=== PATIENT | male | born 1960 | race Caucasian/White ===

== ENCOUNTER 2024-11-15 10:24 | Outpatient (REF) | payer MEDICARE, SELFPAY | END 2024-11-15 10:25 | disposition home or self-care (01) | LOC: HO.BBR 10:24 | PROVIDERS: PCP Physician Assistant; Visit Provider Internal Medicine Hematology | DX: D75.1 Secondary polycythemia (principal) | CPT/HCPCS: 85014; 85018; 99195 ==

== ENCOUNTER 2024-11-30 09:43 | Outpatient (REF) | payer MEDICARE, SELFPAY | END 2024-11-30 09:44 | disposition home or self-care (01) | LOC: HO.BBR 09:43 | PROVIDERS: PCP Physician Assistant; Visit Provider Internal Medicine Hematology | DX: D75.1 Secondary polycythemia (principal) | CPT/HCPCS: 85014; 85018; 99195 ==

== ENCOUNTER 2024-12-17 08:05 | Outpatient (REF) | payer MEDICARE, SELFPAY ==
--- OUTSIDE RECORDS SUMMARY | 2024-12-17 08:16 | XMS_ITS | Continuity of Care Document ---
Author Organization [facility] Address [address] [place] [id number]- Care Team Providers Care Investigator Narcotics Name Role Phone Sergio PERKINS, Trino Diane Primary Care Physici an Encounter [facility] [facility] [id number] Date(s): 11/14/24 - 12/14/24 [facility] [address] [place] [address] Encounter Type: Triage Allergies, Adverse Reactions, Alerts No Known Allergies Immunizations Given and Recorded Vaccine Date Status Refusal Reason SARS-CoV-2 (COVID-19) Ad26 vaccine 01/19/21 Record ed Medications Albuterol (Eqv-ProAir HFA) 90 mcg/inh inhalation aerosol 2 puffs, Inhalation, Every 6 hours, PRN NEEDED, # 8.5 Gm, 0 Refills, Maintenance, 04/30/22 2:58:00PM EDT, [facility] # [facility], 17, INHALE 2 PUFFS BY MOUTH EVERY 6 HOURS NEEDED, 172.72, cm, 03/11/22 10:40:00 EDT, Height Start Date: 04/30/22 Status: Ordered Quantity: 8.5 Unit: g Repeat number: 1 atorvastatin 10 mg oral tablet 1 tablet, By Mouth, Daily, # 90 tablet, 1 Refills, Maintenance, 08/02/24 2:31:00 PM [facility], [facility][id number], 172.72, cm, 11/16/23 8:25:00 EDT, Height Start Date: 08/02/24 Status: Ordered Quantity: 90.0 Unit: tablet Repeat number: 2 Freestyle Lite Lancets See Instructions, # 90 each, Refills 1, Tot. Refills 1, Maintenance, Check blood glucose once a daybefore breakfast. Dx: E11.65, 08/25/20 10:20:00 AM EST, Supply, 172.72, cm, 08/21/20 10:47:00 EST, Height Start Date: 08/25/20 Status: Ordered Quantity: 90.0 Unit: each Repeat number: 2 Indication: Type 2 diabetes mellitus with hyperglycemia Freestyle Lite Monitor See Instructions, # 1 each, Refills 0, Tot. Refills 0, Maintenance, Check blood glucose once a day before breakfast. Dx: E11.65, 08/25/20 10:20:00 AM EST, Supply, 172.72, cm, 08/21/20 10:47:00 EST, Height Start Date: 08/25/20 Status: Ordered Quantity: 1.0 Unit: each Repeat number: 1 Indication: Type 2 diabetes mellitus with hyperglycemia Freestyle Lite Test Strips See Instructions, # 90 each, Refills 1, Tot. Refills 1, Maintenance, Check blood glucose once a daybefore breakfast. Dx: E11.65, 08/25/20 10:20:00 AM EST, Supply, 172.72, cm, 08/21/20 10:47:00 EST, Height Start Date: 08/25/20 Status: Ordered Quantity: 90.0 Unit: each Repeat number: 2 Indication: Type 2 diabetes mellitus with hyperglycemia furosemide 20 mg oral tablet 20 mg, 1, tablet, By Mouth, Daily, # 90 tablet, Refills 3, Tot. Refills 3, Maintenance, 08/10/24 8:41:00 AM EST, Route to Pharmacy Electronically, [facility] #[id number], Partial fill upon patient request if the prescription is for a schedule II opioid drug., 172.72, cm, 08/10/24 8:24:00 EST, Height Start Date: 08/10/24 Status: Ordered Quantity: 90.0 Unit: tablet Repeat number: 4 losartan 50 mg oral tablet 1 tablet, By Mouth, Daily, # 90 tablet, 1 Refills, Maintenance, 11/05/24 12:25:00 PM EDT, [facility] #[id number], 172.72, cm, 10/31/24 13:06:00 EDT, Height Start Date: 11/05/24 Stop Date: 05/04/25 Status: Ordered Quantity: 90.0 Unit: tablet Repeat number: 2 MetFORMIN (Eqv-Glucophage XR) 500 mg oral tablet, extended release See Instructions, TAKE 2 TABLETS BY MOUTH TWICE DAILY WITH HEAVIEST MEALS, # 360 tablet, 3 Refills,Maintenance, 08/23/24 10:24:00 AM EST, [facility] #[id number], 172.72, cm, 08/23/24 10:13:00 EST,Height Start Date: 08/23/24 Status: Ordered Quantity: 360.0 Unit: tablet Repeat number: 4 Metoprolol Succinate ER 100 mg oral tablet, extended release 100 mg, 1, tablet, By Mouth, Daily, # 90 tablet, Refills 3, Tot. Refills 3, Maintenance, 08/24/24 8:49:00 AM EST, Route to Pharmacy Electronically, [facility] #[id number], Partial fill upon patientrequest if the prescription is for a schedule II opioid drug. DOSE CHANGE, 172.72, cm, 08/24/24 8:25:00 EST, Height Start Date: 08/24/24 Status: Ordered Quantity: 90.0 Unit: tablet Repeat number: 4 Spiriva Respimat 60 ACT 2.5 mcg/inh inhalation aerosol 2 puffs, Inhalation, Daily, # 4 Gm, 11 Refills, Maintenance, 09/19/24 9:32:00 AM EST, [facility] #[id number], 172.72, cm, 08/24/24 8:25:00 EST, Height Start Date: 09/19/24 Stop Date: 09/14/25 Status: Ordered Quantity: 4.0 Unit: g Repeat number: 12 Indication: Emphysema, unspecified Symbicort 160mcg/4.5mcg Inhaler 2, puffs, Inhalation, 2 times a day, rinse mouth and throat after use, # 10.3 Gm, Refills 11, Tot. Refills 11, Maintenance, 09/19/24 9:32:00 AM EST, Aerosol, [id number], [facility] #[id number], brand name necessary, 172.72, cm, 08/24/24 8:25:00 EST, Height Start Date: 09/19/24 Stop Date: 09/14/25 Status: Ordered Quantity: 10.3 Unit: g Repeat number: 12 Indication: Emphysema, unspecified varenicline 0.5 mg-1 mg oral tablet See Instructions, 1 tablet By Mouth 2 times a day, # 1 kit, 0 Refills, Maintenance, 11/23/24 8:28:00 AM EDT, Tablet, [facility] #[id number], Partial fill upon patient request if the prescription isfor a schedule II opioid drug., 174, cm, 11/23/24 8:04:00 EDT, Height, 107.3, kg, 11/20/24 14:55:00EDT, Dry Weight Start Date: 11/23/24 Status: Ordered Quantity: 1.0 Unit: kit Repeat number: 1 Indication: Nicotine dependence, unspecified, uncomplicated varenicline 1mg tablet 1 tablet = 1 mg, By Mouth, 2 times a day, for 30 days, Start after completion of starter pack., # 60 tablet, 5 Refills, Acute 05/22/25 8:29:00 AM EDT, 11/23/24 8:29:00 AM EDT, Tablet, [facility] #[id number], Partial fill upon patient request if the prescription is for a schedule II opioid drug., 174, cm, 11/23/24 8:04:00 EDT, Height, 107.3, kg, 11/20/24 14:55:00 EDT, Dry Weight Start Date: 11/23/24 Stop Date: 05/22/25 Status: Ordered Quantity: 60.0 Unit: tablet Repeat number: 6 Indication: Nicotine dependence, unspecified, uncomplicated Ventolin HFA 108 mcg/inh inhalation aerosol with adapter See Instructions, PRN for wheezing, 2 puffs Inhalation Every 4-6 hrs as needed, # 18 Gm, 1 Refills,Maintenance, 06/21/24 10:27:00 AM EDT, Aerosol, [facility] #[id number], REPLACES PROAIR INHALERRX., 172.72, cm, 11/16/23 8:25:00 EDT, Height Start Date: 06/21/24 Status: Ordered Quantity: 18.0 Unit: g Repeat number: 2 Problem List Condition Confirmation Course Effective Dates Status H ealth Status Informant Aortic stenosis Confirmed Active Controlled diabetes mellitus Confirmed Active Fatigue Confirmed Active Hyperlipidemia Confirmed Active Hypertension Confirmed Active 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 Severe obesity (BMI 35.0-39.9) with comorbidity Confirmed Active Tachycardia Confirmed Active Tobacco use disorder Confirmed Active Social History Social History Type Response Smoking Status 10 or more cigarette s (1/2 pack or more)/day in last 30 days; Interested in cessation: No; Patient wants NRT during admission No entered on: 11/20/24 Sex Sex Representation Male (finding) Patient Care team information Care Team Personnel Name: Trino Upton Position: [facility] Associate Professional Member Role: PCP Address: [address] [place] [address] Telecom: Care Team Related Persons Name: JONAS LOVE Insurance Providers Guarantor name: ANEESH LOVE Health Plan Information #: 1 Payer: MEDICARE PART B OUTPT Member Number: NA Policy Number: NA Group Number: NA Health Plan Information #: 2 Payer: [employer] SUP Member Number: NA Policy Number: NA Group Number: NA
== END 2024-12-17 08:06 | disposition home or self-care (01) ==
LOC: HO.BBR 08:05
PROVIDERS: PCP Physician Assistant; Visit Provider Internal Medicine Hematology
DX: D75.1 Secondary polycythemia (principal)
CPT/HCPCS: 85014; 85018; 99195